=== PATIENT | male | born 1940 | race Caucasian/White ===

== ENCOUNTER 2024-10-02 12:04 | Observation (INO) | payer MEDICARE, OTHER ==
--- NOTE | 2024-10-02 12:43 | ERPHSYRPT ---
- History of Present Illness Time Seen by Provider: 10/02/24 12:20 Source: patient, family Exam Limitations: no limitations Patient Subjective Stated Complaint: PT states "I have been having swelling in my legs for the past couple of years and now they are weeping and they really hurt." Triage Nursing Assessment: PT presented alert and oriented X 3, skin pwd. Pt ambulates with assistance. PT lower extremities are extremely swollen and weeping, red and tender. Physician History: 83 years old male with history of lymphedema, noncompliant and has not seen a physician in almost 5 years presented in the ER with bilateral lower extremity swelling with some weeping blisters on the legs along with redness. Patient reports bilateral moderate intensity sharp shooting pain especially in the heels and is having hard time moving around. Denies any chest pain palpitations or shortness of breath. No workup done for lymphedema before. Allergies/Adverse Reactions: tape Adverse Reaction (Intermediate, Uncoded 10/02/24 12:20) Itching Hx Tetanus, Diphtheria Vaccination/Date Given: No Hx Influenza Vaccination/Date Given: No Hx Pneumococcal Vaccination/Date Given: No Immunizations Up to Date: No Travel Risk - International Travel Have you traveled outside of the country in past 3 weeks: No - Emerging Infectious Disease Are you exhibiting symptoms associated with any current EIDs: No - Review of Systems Constitutional: No Symptoms Ears, Nose, & Throat: No Symptoms Respiratory: No Symptoms Cardiac: Edema Abdominal/Gastrointestinal: No Symptoms Genitourinary Symptoms: No Symptoms Musculoskeletal: Arthralgias, Myalgias Skin: Cellulitis, Skin Lesions Neurological: No Symptoms Psychological: No Symptoms Hematologic/Lymphatic: No Symptoms - Past Medical History Pertinent Past Medical History: No - Past Surgical History Past Surgical History: Yes Other Surgical History: kidney stone. hernia - Social History Smoking Status: Never smoker Exposure to second hand smoke: Yes Drug Use: none - Social Determinants of Health Will the patient participate in the screening: Declined to provide - Nursing Vital Signs Nursing Vital Signs: Initial Vital Signs Temperature 97.8 F 10/02/24 12:14 Pulse Rate 68 10/02/24 12:14 Respiratory Rate 18 10/02/24 12:14 Blood Pressure 156/76 10/02/24 12:14 O2 Sat by Pulse Oximetry 100 10/02/24 12:14 Pain Scale Pain Intensity 4 - Physical Exam General Appearance: no apparent distress, alert Eye Exam: PERRL/EOMI Ears, Nose, Throat Exam: normal ENT inspection Neck Exam: normal inspection, non-tender, supple, full range of motion Respiratory Exam: normal breath sounds, lungs clear Cardiovascular Exam: regular rate/rhythm, normal heart sounds Gastrointestinal/Abdomen Exam: soft, normal bowel sounds, No tenderness Back Exam: normal inspection Extremity Exam: inflammation, joint swelling, limited range of motion, pedal edema, swelling, tenderness, other (Diffuse swelling of lower extremities especially in the calfs and feet with few blistering and erythema in the calf.) SpO2: 100 Ordered Tests: Medication Summary Discontinued Medications Generic Name Dose Route Start Last Admin Trade Name Freq PRN Reason Stop Dose Admin Acetaminophen 650 mg 10/02/24 18:16 Acetaminophen 325 Mg Tablet PO 11/01/24 18:15 Q4H PRN PRN PAIN, FEVER, HEADACHE Device 1 10/05/24 09:30 Therapuetic Drug Level Monitor Each IJ 10/05/24 09:31 1XONLY ONE Docusate Sodium 100 mg 10/02/24 18:16 Docusate Sodium 100 Mg Capsule PO 11/01/24 18:15 BIDPRN PRN CONSTIPATION Enoxaparin Sodium 40 mg 10/03/24 10:00 10/03/24 10:55 Enoxaparin Sodium 40 Mg/0.4 Ml Syringe SQ 11/02/24 09:59 Not Given DAILY SHOSHANA Furosemide 20 mg 10/03/24 10:00 10/03/24 10:55 Furosemide 20 Mg/Vial IV 11/02/24 09:59 Not Given BID DIURETIC SHOSHANA Clindamycin HCl/Dextrose 600 mg in 50 mls @ 100 mls/hr 10/02/24 15:52 10/03/24 07:42 Clindamycin-D5w 600 Mg/50 Ml IV 10/02/24 16:21 Not Given STAT STA Piperacillin Sod/Tazobactam 100 mls @ 200 mls/hr 10/02/24 15:52 10/02/24 16:54 Sod 3.375 gm/ Sodium Chloride IV 10/02/24 16:21 Infused STAT ONE Infusion Sodium Chloride Confirm 10/02/24 16:00 Sodium Chloride 100ml Mini-Bag Plus Administered 10/02/24 16:01 Dose 100 mls @ ud IV .STK-MED ONE Piperacillin Sod/Tazobactam 100 mls @ 200 mls/hr 10/03/24 00:00 10/03/24 13:07 Sod 3.375 gm/ Sodium Chloride IV 10/06/24 00:00 Not Given Q6HT COUNTS INCLUDE 234 BEDS AT THE [facility] Sodium Chloride Confirm 10/03/24 00:28 Sodium Chloride 100ml Mini-Bag Plus Administered 10/03/24 00:29 Dose 100 mls @ ud IV .STK-MED ONE Sodium Chloride Confirm 10/03/24 05:29 Sodium Chloride 100ml Mini-Bag Plus Administered 10/03/24 05:30 Dose 100 mls @ ud IV .STK-MED ONE Vancomycin HCl 1 gm in 200 mls @ 133.333 mls/hr 10/03/24 10:00 10/03/24 10:55 Vancomycin 1 Gram/200 Ml Bag IV 11/02/24 09:59 Not Given Q12HT COUNTS INCLUDE 234 BEDS AT THE [facility] Non-Formulary Medication 1 each 10/02/24 18:30 Pharmacy Dose Request: Vancomycin 1 Each IV 11/01/24 18:29 ONCALLTOOR COUNTS INCLUDE 234 BEDS AT THE [facility] Ondansetron HCl 4 mg 10/02/24 18:16 Ondansetron Hcl 4 Mg/2 Ml Vial IV 11/01/24 18:15 Q6H PRN PRN NAUSEA/VOMITING Piperacillin Sod/Tazobactam Sod Confirm 10/02/24 15:59 Piperacillin/Tazobactam Sodium 3.375 Gm Vial Administered 10/02/24 16:00 Dose 3.375 gm IV .STK-MED ONE Piperacillin Sod/Tazobactam Sod Confirm 10/03/24 00:27 Piperacillin/Tazobactam Sodium 3.375 Gm Vial Administered 10/03/24 00:28 Dose 3.375 gm IV .STK-MED ONE Piperacillin Sod/Tazobactam Sod Confirm 10/03/24 05:28 Piperacillin/Tazobactam Sodium 3.375 Gm Vial Administered 10/03/24 05:29 Dose 3.375 gm IV .STK-MED ONE Lab/Rad Data: Laboratory Result Diagrams 10/02/24 12:54 10/02/24 12:54 Laboratory Results 10/02/24 10/02/24 10/02/24 Range/Units 12:55 12:54 12:54 WBC (4.23-9.07) x10^3/uL RBC (4.63-6.08) x10^6/uL Hgb (13.7-17.5) g/dL Hct (40.1-51.0) % MCV (79.0-92.2) fL MCH (25.7-32.2) pg MCHC (32.3-36.5) g/dL RDW (11.6-14.4) % Plt Count (163-337) x10^3/uL MPV (9.4-12.4) fL Gran % (34.0-67.9) % Immature Gran % (Auto) (0.001-0.429) % Nucleat RBC Rel Count (0.00-0.2) % Eos # (Auto) (0.04-0.54) x10^3/uL Immature Gran # (Auto) (0.001-0.031) x10^3u/L Absolute Lymphs (auto) (1.32-3.57) x10^3/uL Absolute Monos (auto) (0.30-0.82) x10^3/uL Absolute Nucleated RBC (0.00-0.012) x10^3u/L Lymphocytes % (21.8-53.1) % Monocytes % (5.3-12.2) % Eosinophils % (0.8-7.0) % Basophils % (0.2-1.2) % Absolute Granulocytes (1.78-5.38) x10^3/uL Basophils # (0.01-0.08) x10^3/uL Sodium (135-145) mmol/L Potassium (3.5-5.1) mmol/L Chloride (98-107) mmol/L Carbon Dioxide (22-30) mmol/L Anion Gap (5-15) MEQ/L BUN (9-20) mg/dL Creatinine (0.66-1.25) mg/dL Estimated GFR ML/MIN Glucose (74-106) mg/dL Lactic Acid 0.8 (0.4-2.0) Calcium (8.4-10.2) mg/dL Magnesium (1.6-2.3) mg/dL Iron 49 (49-181) ug/dL TIBC 267 (261-497) ug/dL Iron Saturation 19 L (20-39) % Ferritin 141 (17.9-464) ng/mL Total Bilirubin (0.2-1.3) mg/dL AST (17-59) U/L ALT (0-50) U/L Alkaline Phosphatase (38-126) U/L NT-Pro-B Natriuret Pep (<300) pg/mL Serum Total Protein (6.3-8.2) g/dL Albumin (3.5-5.0) g/dL Vitamin B12 261 (239-931) pg/mL Folic Acid 3.74 (2.76 - >20) ng/mL Procalcitonin (0.030-0.080) ng/mL TSH 3rd Generation 1.405 (0.470-4.680) mIU/L 10/02/24 10/02/24 Range/Units 12:54 12:54 WBC 7.0 (4.23-9.07) x10^3/uL RBC 4.00 L (4.63-6.08) x10^6/uL Hgb 12.2 L (13.7-17.5) g/dL Hct 38.0 L (40.1-51.0) % MCV 95.0 H (79.0-92.2) fL MCH 30.5 (25.7-32.2) pg MCHC 32.1 L (32.3-36.5) g/dL RDW 13.3 (11.6-14.4) % Plt Count 217 (163-337) x10^3/uL MPV 9.7 (9.4-12.4) fL Gran % 76.5 H (34.0-67.9) % Immature Gran % (Auto) 0.4 (0.001-0.429) % Nucleat RBC Rel Count 0.0 (0.00-0.2) % Eos # (Auto) 0.13 (0.04-0.54) x10^3/uL Immature Gran # (Auto) 0.03 (0.001-0.031) x10^3u/L Absolute Lymphs (auto) 0.71 L (1.32-3.57) x10^3/uL Absolute Monos (auto) 0.73 (0.30-0.82) x10^3/uL Absolute Nucleated RBC 0.00 (0.00-0.012) x10^3u/L Lymphocytes % 10.1 L (21.8-53.1) % Monocytes % 10.4 (5.3-12.2) % Eosinophils % 1.9 (0.8-7.0) % Basophils % 0.7 (0.2-1.2) % Absolute Granulocytes 5.35 (1.78-5.38) x10^3/uL Basophils # 0.05 (0.01-0.08) x10^3/uL Sodium 138 (135-145) mmol/L Potassium 4.3 (3.5-5.1) mmol/L Chloride 103 (98-107) mmol/L Carbon Dioxide 25 (22-30) mmol/L Anion Gap 15.0 (5-15) MEQ/L BUN 25 H (9-20) mg/dL Creatinine 1.24 (0.66-1.25) mg/dL Estimated GFR 57.7 ML/MIN Glucose 99 (74-106) mg/dL Lactic Acid (0.4-2.0) Calcium 9.1 (8.4-10.2) mg/dL Magnesium 2.3 (1.6-2.3) mg/dL Iron (49-181) ug/dL TIBC (261-497) ug/dL Iron Saturation (20-39) % Ferritin (17.9-464) ng/mL Total Bilirubin 1.30 (0.2-1.3) mg/dL AST 24 (17-59) U/L ALT 12 (0-50) U/L Alkaline Phosphatase 83 (38-126) U/L NT-Pro-B Natriuret Pep 553 (<300) pg/mL Serum Total Protein 6.3 (6.3-8.2) g/dL Albumin 4.0 (3.5-5.0) g/dL Vitamin B12 (239-931) pg/mL Folic Acid (2.76 - >20) ng/mL Procalcitonin 0.061 (0.030-0.080) ng/mL TSH 3rd Generation (0.470-4.680) mIU/L - Progress Progress: pain not gone completely, re-examined Progress Note: 10/02/24 15:53 83-year-old with bilateral lower extremity lymphedema is evaluated in the ER for increasing pain and redness with weeping blisters on both legs. Patient has diffuse swelling of both lower extremities. Has increased temperature in the lower legs bilaterally. Workup showed normal white count, chemistries fairly unremarkable and normal lactate. Chest x-ray is negative for any acute cardiopulmonary findings interpreted by me followed by official read. Patient has chronic swelling of lower extremities which is lately getting worse and I believe he is developing cellulitis. Patient is noncompliant and I believe would benefit with few doses of IV antibiotics before switching to oral. He is started on Zosyn and clindamycin He is offered pain medication but declined Discussed with Dr. Judd, reviewed history, workup and agreed with observation admission. Discussed the results of workup with patient and family and plan of admission which they understand and agree. Complexity of problems addressed: Moderate acute Complexity of data reviewed/analyzed: Moderate Risk of complication: Moderate to high Counseled pt/family regarding: lab results, diagnosis, need for follow-up, rad results Medical Desision Making - Independent Historian Additional History obtained from: Spouse - Discussion of managment Care discussed with:: hospitalist Reviewed:: Test results Agreed on:: Treatment plan Will see patient: in hospital - Diagnostic Testing Diagnostic test were ordered, analyzed, and reviewed by me: Yes Radiological Interpretation: Interpreted by me, Reviewed by me - Risk of complications The pt has a mod risk of morbidity or mortality based on: Need for prescription drug management The pt has a high risk of morbidity or mortality based on: Decision regarding hospitilization or escalation of hosp level of care - Departure Departure Disposition: Observation Clinical Impression: Bilateral cellulitis of lower leg Condition: Stable Critical Care Time: No
[2024-10-02 13:15] LABS: Absolute Neutrophil Ct (ANC) 5.35 x10^3/uL (1.78-5.38); BASOPHIL % 0.7 % (0.2-1.2); Basophil (Absolute #) 0.05 x10^3/uL (0.01-0.08); Eosinophil % 1.9 % (0.8-7.0); Eosinophil (Absolute #) 0.13 x10^3/uL (0.04-0.54); Hemoglobin 12.2 g/dL (13.7-17.5); IMMATURE GRAN # 0.03 x10^3u/L (0.001-0.031); IMMATURE GRAN % 0.4 % (0.001-0.429); Lymphocyte (Absolute #) 0.71 x10^3/uL (1.32-3.57); Lymphocytes % 10.1 % (21.8-53.1); Mean Corpuscular Hemoglobin 30.5 pg (25.7-32.2); Mean Corpuscular Hgb Concent. 32.1 g/dL (32.3-36.5); Mean Platelet Volume 9.7 fL (9.4-12.4); Monocyte (Absolute #) 0.73 x10^3/uL (0.30-0.82); Monocytes % 10.4 % (5.3-12.2); Neutrophil % 76.5 % (34.0-67.9); Platelet Count 217 x10^3/uL (163-337); Red Cell Distribution Width 13.3 % (11.6-14.4)
--- NOTE | 2024-10-02 13:33 | XRAY ---
Indication: CHF. Comparison: None Portable chest rotated, hyperinflated, and clear. Heart not enlarged for AP portable technique. Small left hilar calcified nodes. Bony thorax intact with osteopenia and mild degenerative changes. Impression: Nonacute hyperinflated chest with chronic features.
[2024-10-02 13:45] LABS: BILIRUBIN,TOTAL 1.3 mg/dL (0.2-1.3); Calcium 9.1 mg/dL (8.4-10.2); Creatinine 1 1.24 mg/dL (0.66-1.25); EST GLOMERULAR FILTRATION RATE 57.7 ML/MIN; MAGNESIUM 2.3 mg/dL (1.6-2.3); PROCALCITONIN 0.061 ng/mL (0.030-0.080); Potassium 4.3 mmol/L (3.5-5.1); Total Protein 6.3 g/dL (6.3-8.2)
[2024-10-02] MEDS ORDERED: PIPERACILLIN/TAZOBACTAM IV ONE (15:59)
[2024-10-02] MEDS ORDERED: Sodium Chloride 100ML MINI-BAG PLUS 100 ML IV ONE (16:00)
[2024-10-02] MEDS: PIPERACILLIN/TAZOBACTAM 3.375 GM in Sodium Chloride 100ML MINI-BAG PLUS 100 ML IV ONE (16:12)
--- NOTE | 2024-10-02 18:06 | PCM.HP ---
<JESENIA REYES - Last Filed: 10/02/24 18:01> History of Present Illness - Chief Complaint Chief Complaint: Bilateral lower extremities cellulitis Date: 10/02/24 History of Present Illness: is a 83 year old male with chronic bilateral lower extremity lymphedema, who presented to ED 10/02/24 with worsening swelling, redness, and new-onset weeping blisters on both legs. He has not seen a physician in nearly five years and is reportedly noncompliant with routine medical care. The patient describes moderate-intensity sharp, shooting pain, primarily localized to the heels, which is interfering with mobility. Patient states he is unable to even wear shoes. He denies chest pain, palpitations, shortness of breath, or systemic symptoms such as fever or chills. On examination, there is diffuse, non-pitting swelling of both lower extremities with overlying erythema, and serous drainage. Bilateral lower legs are notably tender. Laboratory studies reveal a normal white blood cell count, macrocytic anemia with hemoglobin of 12.2, and unremarkable chemistry panel including a normal lactate level. Chest X-ray shows no acute cardiopulmonary process. There is no prior documented workup or treatment history for his lymphedema. Given the clinical presentation and exam findings, he is admitt with bilateral lower extremity cellulitis, likely superimposed on chronic lymphedema. He was initiated on empiric broad-spectrum IV antibiotics in the EDpiperacillin- tazobactam (Zosyn) and clindamycin. He declined analgesia but will be reassessed for pain control needs. Will continue Zosyn and Vancomycin pending culture results. Podiatry consulted. Compression therapy and long-term lymphedema management will be addressed. - Review of Systems Constitutional: No Symptoms Eyes: No Symptoms Ears, Nose, & Throat: No Symptoms Respiratory: No Symptoms Cardiac: No Symptoms Abdominal/Gastrointestinal: No Symptoms Genitourinary Symptoms: No Symptoms Musculoskeletal: No Symptoms Skin: Cellulitis (BLE 4++ pitting ), Skin Lesions (drainage) Neurological: No Symptoms Psychological: No Symptoms Endocrine: No Symptoms Hematologic/Lymphatic: No Symptoms Immunological/Allergic: No Symptoms Medications & Allergies Home Medications: Home Medication List No Reportable Medications [No Reported Medications] 10/02/24 [History Confirmed 10/02/24] Allergies/Adverse Reactions: Allergies Allergy/AdvReac Type Severity Reaction Status Date / Time tape AdvReac Intermediate Itching Uncoded 10/02/24 12:20 - Past Medical History Past Medical History: No - Past Surgical History Past Surgical History: Yes Other Surgical History: kidney stone. hernia Significant Family History: diabetes - Social History Smoking Status: Never smoker Exposure to second hand smoke: Yes Alcohol: None Drug Use: none - Social Determinants of Health Will the patient participate in the screening: Declined to provide - Physical Exam Vital Signs: Vital Signs - 24 hr Temp Pulse Resp BP BP Pulse Ox 10/02/24 16:30 152/69 10/02/24 16:15 144/65 10/02/24 16:00 68 18 150/68 99 10/02/24 15:57 100 10/02/24 15:45 131/79 10/02/24 15:30 141/70 10/02/24 15:15 136/71 10/02/24 15:00 152/65 10/02/24 14:45 152/101 10/02/24 14:30 144/66 10/02/24 14:16 136/64 10/02/24 14:01 153/72 10/02/24 13:45 151/69 10/02/24 13:30 163/76 10/02/24 13:15 161/85 10/02/24 13:00 78 18 164/88 99 10/02/24 12:45 154/85 100 10/02/24 12:30 154/109 98 10/02/24 12:15 147/63 100 10/02/24 12:14 97.8 F 68 18 156/76 100 General Appearance: no apparent distress Neurologic Exam: alert, oriented x 3, agitation, uncooperative Eye Exam: PERRL/EOMI Neck Exam: normal inspection Respiratory Exam: normal breath sounds, lungs clear Cardiovascular Exam: regular rate/rhythm, normal heart sounds Extremity Exam: pedal edema, swelling, tenderness Skin Exam: other (BLE erytema, open areas with serous drainage) Results - Labs Lab/Micro Results: Lab Results-Last 24 Hours 10/02/24 10/02/24 10/02/24 Range/Units 12:54 12:54 12:55 WBC 7.0 (4.23-9.07) x10^3/uL RBC 4.00 L (4.63-6.08) x10^6/uL Hgb 12.2 L (13.7-17.5) g/dL Hct 38.0 L (40.1-51.0) % MCV 95.0 H (79.0-92.2) fL MCH 30.5 (25.7-32.2) pg MCHC 32.1 L (32.3-36.5) g/dL RDW 13.3 (11.6-14.4) % Plt Count 217 (163-337) x10^3/uL MPV 9.7 (9.4-12.4) fL Gran % 76.5 H (34.0-67.9) % Immature Gran % (Auto) 0.4 (0.001-0.429) % Nucleat RBC Rel Count 0.0 (0.00-0.2) % Eos # (Auto) 0.13 (0.04-0.54) x10^3/uL Immature Gran # (Auto) 0.03 (0.001-0.031) x10^3u/L Absolute Lymphs (auto) 0.71 L (1.32-3.57) x10^3/uL Absolute Monos (auto) 0.73 (0.30-0.82) x10^3/uL Absolute Nucleated RBC 0.00 (0.00-0.012) x10^3u/L Lymphocytes % 10.1 L (21.8-53.1) % Monocytes % 10.4 (5.3-12.2) % Eosinophils % 1.9 (0.8-7.0) % Basophils % 0.7 (0.2-1.2) % Absolute Granulocytes 5.35 (1.78-5.38) x10^3/uL Basophils # 0.05 (0.01-0.08) x10^3/uL Sodium 138 (135-145) mmol/L Potassium 4.3 (3.5-5.1) mmol/L Chloride 103 (98-107) mmol/L Carbon Dioxide 25 (22-30) mmol/L Anion Gap 15.0 (5-15) MEQ/L BUN 25 H (9-20) mg/dL Creatinine 1.24 (0.66-1.25) mg/dL Estimated GFR 57.7 ML/MIN Glucose 99 (74-106) mg/dL Lactic Acid 0.8 (0.4-2.0) Calcium 9.1 (8.4-10.2) mg/dL Magnesium 2.3 (1.6-2.3) mg/dL Total Bilirubin 1.30 (0.2-1.3) mg/dL AST 24 (17-59) U/L ALT 12 (0-50) U/L Alkaline Phosphatase 83 (38-126) U/L NT-Pro-B Natriuret Pep 553 (<300) pg/mL Serum Total Protein 6.3 (6.3-8.2) g/dL Albumin 4.0 (3.5-5.0) g/dL Procalcitonin 0.061 (0.030-0.080) ng/mL - Radiology Impressions Radiology Exams & Impressions: Radiology Procedures Category Date Time Status CHEST 1 VIEW (PORTABLE) Stat Exams 10/02/24 12:35 Completed Assessment/Plan (1) Bilateral cellulitis of lower leg Current Visit: Yes Status: Acute Assessment & Plan: -BLE with diffuse erythema, warmth, pain, and weeping blisters -Zosyn and clindamycin in the ED -will continue with vanc/zosyn -follow wound cultures -Monitor for signs of systemic infection -Elevate legs- kaila borders -Podiatry consulted - appreciate recs -venous/arterial dopplers -CRP/ESR/procal Code(s): L03.116 - CELLULITIS OF LEFT LOWER LIMB; L03.115 - CELLULITIS OF RIGHT LOWER LIMB (2) Chronic acquired lymphedema Current Visit: Yes Status: Acute Assessment & Plan: -see cellulitis Code(s): I89.0 - LYMPHEDEMA, NOT ELSEWHERE CLASSIFIED (3) History of noncompliance with medical treatment Current Visit: Yes Status: Acute Assessment & Plan: -noted -Discussed importance of follow-up, adherence to treatment plans, and regular primary care engagement -Social work consult for discharge planning and assistance with outpatient access if appropriate Code(s): Z91.199 - PT NONCOMPL WITH OTHER MED TRTMT AND REGIMEN D/T UNSP REASON (4) Pain management Current Visit: Yes Status: Acute Assessment & Plan: -Patient declines pain control - will add prn norco Code(s): R52 - PAIN, UNSPECIFIED (5) Macrocytic anemia Current Visit: Yes Status: Acute Assessment & Plan: -Mild and likely chronic; etiology unclear -Consider outpatient workup if persistent: check vitamin B12, folate, TSH, reticulocyte count, and peripheral smear. -No acute intervention required at this time VTE: lovenox PPI: protonix Dispo: 1-3 days Code status: Full Code(s): D53.9 - NUTRITIONAL ANEMIA, UNSPECIFIED Telemedicine Encounter - Telemedicine Encounter Telemedicine Encounter: "The entirety of this encounter was performed via Telemedicine" This visit was performed using real-time audio and video connection between my location and thepatients locationwith the assistance of a surrogateat the patients location. Written or verbal consent was obtained from the patient/guardian to perform this visit using[employer]human[employer]cine technology. Any patient questions regarding the telemedicine interaction were answered. <CHUCKY LEE - Last Filed: 10/02/24 21:25> History of Present Illness - Chief Complaint History of Present Illness: is a 83 year old male. - Physical Exam Vital Signs: Vital Signs - 24 hr Temp Pulse Resp BP BP Pulse Ox 10/02/24 20:33 98.5 F 81 17 127/61 97 10/02/24 17:50 97.8 F 68 18 156/76 99 10/02/24 17:21 98.1 F 80 16 175/79 96 10/02/24 16:30 152/69 10/02/24 16:15 144/65 10/02/24 16:00 68 18 150/68 99 10/02/24 15:57 100 10/02/24 15:45 131/79 10/02/24 15:30 141/70 10/02/24 15:15 136/71 10/02/24 15:00 152/65 10/02/24 14:45 152/101 10/02/24 14:30 144/66 10/02/24 14:16 136/64 10/02/24 14:01 153/72 10/02/24 13:45 151/69 10/02/24 13:30 163/76 10/02/24 13:15 161/85 10/02/24 13:00 78 18 164/88 99 10/02/24 12:45 154/85 100 10/02/24 12:30 154/109 98 10/02/24 12:15 147/63 100 04/30/25 12:14 97.8 F 68 18 156/76 100 Results - Labs Lab/Micro Results: Lab Results-Last 24 Hours 10/02/24 10/02/24 10/02/24 Range/Units 12:54 12:54 12:54 WBC 7.0 (4.23-9.07) x10^3/uL RBC 4.00 L (4.63-6.08) x10^6/uL Hgb 12.2 L (13.7-17.5) g/dL Hct 38.0 L (40.1-51.0) % MCV 95.0 H (79.0-92.2) fL MCH 30.5 (25.7-32.2) pg MCHC 32.1 L (32.3-36.5) g/dL RDW 13.3 (11.6-14.4) % Plt Count 217 (163-337) x10^3/uL MPV 9.7 (9.4-12.4) fL Gran % 76.5 H (34.0-67.9) % Immature Gran % (Auto) 0.4 (0.001-0.429) % Nucleat RBC Rel Count 0.0 (0.00-0.2) % Eos # (Auto) 0.13 (0.04-0.54) x10^3/uL Immature Gran # (Auto) 0.03 (0.001-0.031) x10^3u/L Absolute Lymphs (auto) 0.71 L (1.32-3.57) x10^3/uL Absolute Monos (auto) 0.73 (0.30-0.82) x10^3/uL Absolute Nucleated RBC 0.00 (0.00-0.012) x10^3u/L Lymphocytes % 10.1 L (21.8-53.1) % Monocytes % 10.4 (5.3-12.2) % Eosinophils % 1.9 (0.8-7.0) % Basophils % 0.7 (0.2-1.2) % Absolute Granulocytes 5.35 (1.78-5.38) x10^3/uL Basophils # 0.05 (0.01-0.08) x10^3/uL Sodium 138 (135-145) mmol/L Potassium 4.3 (3.5-5.1) mmol/L Chloride 103 (98-107) mmol/L Carbon Dioxide 25 (22-30) mmol/L Anion Gap 15.0 (5-15) MEQ/L BUN 25 H (9-20) mg/dL Creatinine 1.24 (0.66-1.25) mg/dL Estimated GFR 57.7 ML/MIN Glucose 99 (74-106) mg/dL Lactic Acid (0.4-2.0) Calcium 9.1 (8.4-10.2) mg/dL Magnesium 2.3 (1.6-2.3) mg/dL Iron (49-181) ug/dL TIBC (261-497) ug/dL Iron Saturation (20-39) % Ferritin 141 (17.9-464) ng/mL Total Bilirubin 1.30 (0.2-1.3) mg/dL AST 24 (17-59) U/L ALT 12 (0-50) U/L Alkaline Phosphatase 83 (38-126) U/L NT-Pro-B Natriuret Pep 553 (<300) pg/mL Serum Total Protein 6.3 (6.3-8.2) g/dL Albumin 4.0 (3.5-5.0) g/dL Vitamin B12 261 (239-931) pg/mL Folic Acid 3.74 (2.76 - >20) ng/mL Procalcitonin 0.061 (0.030-0.080) ng/mL TSH 3rd Generation 1.405 (0.470-4.680) mIU/L 10/02/24 10/02/24 Range/Units 12:54 12:55 WBC (4.23-9.07) x10^3/uL RBC (4.63-6.08) x10^6/uL Hgb (13.7-17.5) g/dL Hct (40.1-51.0) % MCV (79.0-92.2) fL MCH (25.7-32.2) pg MCHC (32.3-36.5) g/dL RDW (11.6-14.4) % Plt Count (163-337) x10^3/uL MPV (9.4-12.4) fL Gran % (34.0-67.9) % Immature Gran % (Auto) (0.001-0.429) % Nucleat RBC Rel Count (0.00-0.2) % Eos # (Auto) (0.04-0.54) x10^3/uL Immature Gran # (Auto) (0.001-0.031) x10^3u/L Absolute Lymphs (auto) (1.32-3.57) x10^3/uL Absolute Monos (auto) (0.30-0.82) x10^3/uL Absolute Nucleated RBC (0.00-0.012) x10^3u/L Lymphocytes % (21.8-53.1) % Monocytes % (5.3-12.2) % Eosinophils % (0.8-7.0) % Basophils % (0.2-1.2) % Absolute Granulocytes (1.78-5.38) x10^3/uL Basophils # (0.01-0.08) x10^3/uL Sodium (135-145) mmol/L Potassium (3.5-5.1) mmol/L Chloride (98-107) mmol/L Carbon Dioxide (22-30) mmol/L Anion Gap (5-15) MEQ/L BUN (9-20) mg/dL Creatinine (0.66-1.25) mg/dL Estimated GFR ML/MIN Glucose (74-106) mg/dL Lactic Acid 0.8 (0.4-2.0) Calcium (8.4-10.2) mg/dL Magnesium (1.6-2.3) mg/dL Iron 49 (49-181) ug/dL TIBC 267 (261-497) ug/dL Iron Saturation 19 L (20-39) % Ferritin (17.9-464) ng/mL Total Bilirubin (0.2-1.3) mg/dL AST (17-59) U/L ALT (0-50) U/L Alkaline Phosphatase (38-126) U/L NT-Pro-B Natriuret Pep (<300) pg/mL Serum Total Protein (6.3-8.2) g/dL Albumin (3.5-5.0) g/dL Vitamin B12 (239-931) pg/mL Folic Acid (2.76 - >20) ng/mL Procalcitonin (0.030-0.080) ng/mL TSH 3rd Generation (0.470-4.680) mIU/L - Radiology Impressions Radiology Exams & Impressions: Radiology Procedures Category Date Time Status ARTERIAL BILAT LOWER EXTREMITY [US] Urgent Exams 10/02/24 18:22 Ordered CHEST 1 VIEW (PORTABLE) Stat Exams 10/02/24 12:35 Completed VENOUS BILATERAL EXTREMITY [US] Urgent Exams 10/02/24 18:20 Ordered Telemedicine Encounter - Telemedicine Encounter Telemedicine Encounter: "The entirety of this encounter was performed via Telemedicine" This visit was performed using real-time audio and video connection between my location and thepatients locationwith the assistance of a surrogateat the patients location. Written or verbal consent was obtained from the patient/guardian to perform this visit using[employer] technology. Any patient questions regarding the telemedicine interaction were answered. DELILAH Encounter - DELILAH Encounter Attestation DELILAH Encounter Attestation: "IhavepersonallyseenandexSUNIL Carroll andhavediscussed pertinent aspects of their care with Jesenia He agree with the history, physical exam (any modifications based on my personal exam will be noted below), assessment, and plan as outlined in original note. Please see immediately below for my summary of findings and additional assessment and plan along with any meaningful corrections/explanations to the Subjective/Objective portions of the DELILAH note will be noted." My portion of the encounter took place via telemedicine. -bilateral lower extremity cellulitis with chronic severe lymphedema in a non compliant, treatment averse patient. He seems very reluctant to any kind of medical intervention. Will admit for IV antibiotics, podiatry consult. He will most likely need home health at discharge.
[2024-10-02] MEDS ORDERED: Docusate Sodium 100 MG PO PRN (18:16)
[2024-10-02] MEDS ORDERED: TYLENOL 325 MG PO PRN (18:16)
[2024-10-02] MEDS ORDERED: Zofran 4 MG/2 ML VIAL IV PRN (18:16)
[2024-10-02] MEDS ORDERED: PHARMACY DOSING REQUIRED: VANCOMYCIN IV SCH (18:30)
[2024-10-02 18:55] LABS: Iron 49 ug/dL (49-181); Iron Saturation 19 % (20-39); TIBC 267 ug/dL (261-497)
[2024-10-02 19:53] LABS: Folate (Folic Acid) 3.74 ng/mL (2.76 - >20); TSH, 3RD Generation 1.405 mIU/L (0.470-4.680)
[2024-10-03] MEDS ORDERED: PIPERACILLIN/TAZOBACTAM IV ONE ×2 (00:27→05:28)
[2024-10-03] MEDS ORDERED: Sodium Chloride 100ML MINI-BAG PLUS 100 ML IV ONE ×2 (00:28→05:29)
[2024-10-03] MEDS: PIPERACILLIN/TAZOBACTAM 3.375 GM in Sodium Chloride 100ML MINI-BAG PLUS 100 ML IV SCH (00:37)
--- NOTE | 2024-10-03 05:08 | PCM.NOTE ---
Date and Time: 10/03/24 0507 Subjective Assessment: is a 83 year old male with chronic bilateral lower extremity lymphedema, who presented to ED 10/02/24 with worsening swelling, redness, and new-onset weeping blisters on both legs. He has not seen a physician in nearly five years and is reportedly noncompliant with routine medical care. The patient describes moderate-intensity sharp, shooting pain, primarily localized to the heels, which is interfering with mobility. Patient states he is unable to even wear shoes. He denies chest pain, palpitations, shortness of breath, or systemic symptoms such as fever or chills. On examination, there is diffuse, non-pitting swelling of both lower extremities with overlying erythema, and serous drainage. Bilateral lower legs are notably tender. Laboratory studies reveal a normal white blood cell count, macrocytic anemia with hemoglobin of 12.2, and unremarkable chemistry panel including a normal lactate level. Chest X-ray shows no acute cardiopulmonary process. There is no prior documented workup or treatment history for his lymphedema. Given the clinical presentation and exam findings, he is admitted with bilateral lower extremity cellulitis, likely superimposed on chronic lymphedema. He was initiated on empiric broad-spectrum IV antibiotics in the EDpiperacillin-tazobactam (Zosyn) and clindamycin. He declined analgesia but will be reassessed for pain control needs. Will continue Zosyn and Vancomycin pending culture results. Podiatry consulted. Compression therapy and long-term lymphedema management will be addressed. Objective Data Vital Signs: Vital Signs - 24 hr Temp Pulse Resp BP BP Pulse Ox 10/03/24 04:00 97.8 F 71 16 108/53 93 L 10/03/24 00:00 99.8 F 70 17 136/63 95 10/02/24 20:33 98.5 F 81 17 127/61 97 10/02/24 17:50 97.8 F 68 18 156/76 99 10/02/24 17:21 98.1 F 80 16 175/79 96 10/02/24 16:30 152/69 10/02/24 16:15 144/65 10/02/24 16:00 68 18 150/68 99 10/02/24 15:57 100 10/02/24 15:45 131/79 10/02/24 15:30 141/70 10/02/24 15:15 136/71 10/02/24 15:00 152/65 10/02/24 14:45 152/101 10/02/24 14:30 144/66 10/02/24 14:16 136/64 10/02/24 14:01 153/72 10/02/24 13:45 151/69 10/02/24 13:30 163/76 10/02/24 13:15 161/85 10/02/24 13:00 78 18 164/88 99 10/02/24 12:45 154/85 100 10/02/24 12:30 154/109 98 10/02/24 12:15 147/63 100 10/02/24 12:14 97.8 F 68 18 156/76 100 Pain Assessment - Last Documented Pain Intensity 0 Intake and Output: Intake & Output 09/30/24 10/01/24 10/02/24 10/03/24 11:59 11:59 11:59 11:59 Intake Total 720 Output Total 300 Balance 420 Weight 111.7 kg Lab Results: Lab Results-Last 24 Hours 10/02/24 10/02/24 10/02/24 Range/Units 12:54 12:54 12:54 WBC 7.0 (4.23-9.07) x10^3/uL RBC 4.00 L (4.63-6.08) x10^6/uL Hgb 12.2 L (13.7-17.5) g/dL Hct 38.0 L (40.1-51.0) % MCV 95.0 H (79.0-92.2) fL MCH 30.5 (25.7-32.2) pg MCHC 32.1 L (32.3-36.5) g/dL RDW 13.3 (11.6-14.4) % Plt Count 217 (163-337) x10^3/uL MPV 9.7 (9.4-12.4) fL Gran % 76.5 H (34.0-67.9) % Immature Gran % (Auto) 0.4 (0.001-0.429) % Nucleat RBC Rel Count 0.0 (0.00-0.2) % Eos # (Auto) 0.13 (0.04-0.54) x10^3/uL Immature Gran # (Auto) 0.03 (0.001-0.031) x10^3u/L Absolute Lymphs (auto) 0.71 L (1.32-3.57) x10^3/uL Absolute Monos (auto) 0.73 (0.30-0.82) x10^3/uL Absolute Nucleated RBC 0.00 (0.00-0.012) x10^3u/L Lymphocytes % 10.1 L (21.8-53.1) % Monocytes % 10.4 (5.3-12.2) % Eosinophils % 1.9 (0.8-7.0) % Basophils % 0.7 (0.2-1.2) % Absolute Granulocytes 5.35 (1.78-5.38) x10^3/uL Basophils # 0.05 (0.01-0.08) x10^3/uL Sodium 138 (135-145) mmol/L Potassium 4.3 (3.5-5.1) mmol/L Chloride 103 (98-107) mmol/L Carbon Dioxide 25 (22-30) mmol/L Anion Gap 15.0 (5-15) MEQ/L BUN 25 H (9-20) mg/dL Creatinine 1.24 (0.66-1.25) mg/dL Estimated GFR 57.7 ML/MIN Glucose 99 (74-106) mg/dL Lactic Acid (0.4-2.0) Calcium 9.1 (8.4-10.2) mg/dL Magnesium 2.3 (1.6-2.3) mg/dL Iron (49-181) ug/dL TIBC (261-497) ug/dL Iron Saturation (20-39) % Ferritin 141 (17.9-464) ng/mL Total Bilirubin 1.30 (0.2-1.3) mg/dL AST 24 (17-59) U/L ALT 12 (0-50) U/L Alkaline Phosphatase 83 (38-126) U/L NT-Pro-B Natriuret Pep 553 (<300) pg/mL Serum Total Protein 6.3 (6.3-8.2) g/dL Albumin 4.0 (3.5-5.0) g/dL Vitamin B12 261 (239-931) pg/mL Folic Acid 3.74 (2.76 - >20) ng/mL Procalcitonin 0.061 (0.030-0.080) ng/mL TSH 3rd Generation 1.405 (0.470-4.680) mIU/L 10/02/24 10/02/24 Range/Units 12:54 12:55 WBC (4.23-9.07) x10^3/uL RBC (4.63-6.08) x10^6/uL Hgb (13.7-17.5) g/dL Hct (40.1-51.0) % MCV (79.0-92.2) fL MCH (25.7-32.2) pg MCHC (32.3-36.5) g/dL RDW (11.6-14.4) % Plt Count (163-337) x10^3/uL MPV (9.4-12.4) fL Gran % (34.0-67.9) % Immature Gran % (Auto) (0.001-0.429) % Nucleat RBC Rel Count (0.00-0.2) % Eos # (Auto) (0.04-0.54) x10^3/uL Immature Gran # (Auto) (0.001-0.031) x10^3u/L Absolute Lymphs (auto) (1.32-3.57) x10^3/uL Absolute Monos (auto) (0.30-0.82) x10^3/uL Absolute Nucleated RBC (0.00-0.012) x10^3u/L Lymphocytes % (21.8-53.1) % Monocytes % (5.3-12.2) % Eosinophils % (0.8-7.0) % Basophils % (0.2-1.2) % Absolute Granulocytes (1.78-5.38) x10^3/uL Basophils # (0.01-0.08) x10^3/uL Sodium (135-145) mmol/L Potassium (3.5-5.1) mmol/L Chloride (98-107) mmol/L Carbon Dioxide (22-30) mmol/L Anion Gap (5-15) MEQ/L BUN (9-20) mg/dL Creatinine (0.66-1.25) mg/dL Estimated GFR ML/MIN Glucose (74-106) mg/dL Lactic Acid 0.8 (0.4-2.0) Calcium (8.4-10.2) mg/dL Magnesium (1.6-2.3) mg/dL Iron 49 (49-181) ug/dL TIBC 267 (261-497) ug/dL Iron Saturation 19 L (20-39) % Ferritin (17.9-464) ng/mL Total Bilirubin (0.2-1.3) mg/dL AST (17-59) U/L ALT (0-50) U/L Alkaline Phosphatase (38-126) U/L NT-Pro-B Natriuret Pep (<300) pg/mL Serum Total Protein (6.3-8.2) g/dL Albumin (3.5-5.0) g/dL Vitamin B12 (239-931) pg/mL Folic Acid (2.76 - >20) ng/mL Procalcitonin (0.030-0.080) ng/mL TSH 3rd Generation (0.470-4.680) mIU/L Radiology Exams: Radiology Procedures Category Date Time Status ARTERIAL BILAT LOWER EXTREMITY [US] Urgent Exams 10/03/24 18:22 Ordered CHEST 1 VIEW (PORTABLE) Stat Exams 10/02/24 12:35 Completed VENOUS BILATERAL EXTREMITY [US] Urgent Exams 10/03/24 18:20 Ordered Medications: Medications Generic Name Dose Route Start Last Admin Trade Name Freq PRN Reason Stop Dose Admin Acetaminophen 650 mg 10/02/24 18:16 Acetaminophen 325 Mg Tablet PO 11/01/24 18:15 Q4H PRN PRN PAIN, FEVER, HEADACHE Docusate Sodium 100 mg 10/02/24 18:16 Docusate Sodium 100 Mg Capsule PO 11/01/24 18:15 BIDPRN PRN CONSTIPATION Enoxaparin Sodium 40 mg 10/03/24 10:00 Enoxaparin Sodium 40 Mg/0.4 Ml Syringe SQ 11/02/24 09:59 DAILY SHOSHANA Furosemide 20 mg 10/03/24 10:00 Furosemide 20 Mg/Vial IV 11/02/24 09:59 BID DIURETIC SHOSHANA Piperacillin Sod/Tazobactam 100 mls @ 200 mls/hr 10/03/24 00:00 10/03/24 00:37 Sod 3.375 gm/ Sodium Chloride IV 10/06/24 00:00 200 mls/hr Q6HT [facility] Administration Non-Formulary Medication 1 each 10/02/24 18:30 Pharmacy Dose Request: Vancomycin 1 Each IV 11/01/24 18:29 ONCALLTOOR [facility] Ondansetron HCl 4 mg 10/02/24 18:16 Ondansetron Hcl 4 Mg/2 Ml Vial IV 11/01/24 18:15 Q6H PRN PRN NAUSEA/VOMITING Discontinued Medications Generic Name Dose Route Start Last Admin Trade Name Freq PRN Reason Stop Dose Admin Clindamycin HCl/Dextrose 600 mg in 50 mls @ 100 mls/hr 10/02/24 15:52 Clindamycin-D5w 600 Mg/50 Ml IV 10/02/24 16:21 STAT STA Piperacillin Sod/Tazobactam 100 mls @ 200 mls/hr 10/02/24 15:52 10/02/24 16:54 Sod 3.375 gm/ Sodium Chloride IV 10/02/24 16:21 Infused STAT ONE Infusion Sodium Chloride Confirm 10/02/24 16:00 Sodium Chloride 100ml Mini-Bag Plus Administered 10/02/24 16:01 Dose 100 mls @ ud IV .STK-MED ONE Sodium Chloride Confirm 10/03/24 00:28 Sodium Chloride 100ml Mini-Bag Plus Administered 10/03/24 00:29 Dose 100 mls @ ud IV .STK-MED ONE Piperacillin Sod/Tazobactam Sod Confirm 10/02/24 15:59 Piperacillin/Tazobactam Sodium 3.375 Gm Vial Administered 10/02/24 16:00 Dose 3.375 gm IV .STK-MED ONE Piperacillin Sod/Tazobactam Sod Confirm 10/03/24 00:27 Piperacillin/Tazobactam Sodium 3.375 Gm Vial Administered 10/03/24 00:28 Dose 3.375 gm IV .STK-MED ONE Assessment/Plan (1) Bilateral cellulitis of lower leg Current Visit: Yes Status: Acute Assessment & Plan: -BLE with diffuse erythema, warmth, pain, and weeping blisters -Zosyn and clindamycin in the ED -will continue with vanc/zosyn -follow wound cultures -Monitor for signs of systemic infection -Elevate legs- kaila borders -Podiatry consulted - appreciate recs -venous/arterial dopplers -CRP/ESR/procal Code(s): L03.116 - CELLULITIS OF LEFT LOWER LIMB; L03.115 - CELLULITIS OF RIGHT LOWER LIMB (2) Chronic acquired lymphedema Current Visit: Yes Status: Acute Assessment & Plan: -see cellulitis Code(s): I89.0 - LYMPHEDEMA, NOT ELSEWHERE CLASSIFIED (3) History of noncompliance with medical treatment Current Visit: Yes Status: Acute Assessment & Plan: -noted -Discussed importance of follow-up, adherence to treatment plans, and regular primary care engagement -Social work consult for discharge planning and assistance with outpatient access if appropriate Code(s): Z91.199 - PT NONCOMPL WITH OTHER MED TRTMT AND REGIMEN D/T UNSP REASON (4) Pain management Current Visit: Yes Status: Acute Assessment & Plan: -Patient declines pain control - will add prn norco Code(s): R52 - PAIN, UNSPECIFIED (5) Macrocytic anemia Current Visit: Yes Status: Acute Assessment & Plan: -Mild and likely chronic; etiology unclear -Consider outpatient workup if persistent: check vitamin B12, folate, TSH, reticulocyte count, and peripheral smear. -No acute intervention required at this time Code(s): L03.116 - CELLULITIS OF LEFT LOWER LIMB; L03.115 - CELLULITIS OF RIGHT LOWER LIMB (2) Chronic acquired lymphedema Current Visit: Yes Status: Acute Code(s): I89.0 - LYMPHEDEMA, NOT ELSEWHERE CLASSIFIED (3) History of noncompliance with medical treatment Current Visit: Yes Status: Acute Code(s): Z91.199 - PT NONCOMPL WITH OTHER MED TRTMT AND REGIMEN D/T UNSP REASON (4) Pain management Current Visit: Yes Status: Acute Code(s): R52 - PAIN, UNSPECIFIED (5) Macrocytic anemia Current Visit: Yes Status: Acute Code(s): D53.9 - NUTRITIONAL ANEMIA, UNSPECIFIED
[2024-10-03 05:14] LABS: Absolute Neutrophil Ct (ANC) 3.66 x10^3/uL (1.78-5.38); BASOPHIL % 0.9 % (0.2-1.2); Basophil (Absolute #) 0.05 x10^3/uL (0.01-0.08); Eosinophil % 3.6 % (0.8-7.0); Hematocrit 32.3 % (40.1-51.0); Hemoglobin 10.4 g/dL (13.7-17.5); IMMATURE GRAN # 0.02 x10^3u/L (0.001-0.031); IMMATURE GRAN % 0.4 % (0.001-0.429); Lymphocyte (Absolute #) 0.79 x10^3/uL (1.32-3.57); Lymphocytes % 14.4 % (21.8-53.1); Mean Cell Volume 94.7 fL (79.0-92.2); Mean Corpuscular Hemoglobin 30.5 pg (25.7-32.2); Mean Corpuscular Hgb Concent. 32.2 g/dL (32.3-36.5); Mean Platelet Volume 10.1 fL (9.4-12.4); Monocyte (Absolute #) 0.78 x10^3/uL (0.30-0.82); Monocytes % 14.2 % (5.3-12.2); Neutrophil % 66.5 % (34.0-67.9); Platelet Count 177 x10^3/uL (163-337); Red Blood Count 3.41 x10^6/uL (4.63-6.08); Red Cell Distribution Width 13.3 % (11.6-14.4); White Blood Count 5.5 x10^3/uL (4.23-9.07)
[2024-10-03 05:33] LABS: ALBUMIN 2.9 g/dL (3.5-5.0); ANION GAP 11.8 MEQ/L (5-15); BILIRUBIN,TOTAL 1.2 mg/dL (0.2-1.3); Calcium 8.5 mg/dL (8.4-10.2); Creatinine 1 1.2 mg/dL (0.66-1.25); Potassium 3.9 mmol/L (3.5-5.1); Total Protein 4.9 g/dL (6.3-8.2)
[2024-10-03 07:20] VITALS: BP 122/58; PULSE 62; RESP 22; TEMP 99.4
[2024-10-03] MEDS: CLINDAMYCIN-D5W 600 MG/50 ML*** 600 MG/50 ML BAG IV STA (07:42)
--- NOTE | 2024-10-03 10:28 | PCM.DS ---
Discharge Summary Date of Admission: 10/02/24 17:06 Date of Discharge: 10/03/24 Admitting Physician: CHUCKY LEE MD Consults: Consults on Case 10/02/24 17:39 Consult Podiatry ROUTINE Primary Care Provider: NO FAMILY DOCTOR Allergies Allergies tape Adverse Reaction (Intermediate, Uncoded 10/02/24 12:20) Itching Hospital Summary - Hospital Course Hospital Course: Mr. Singh is an 83-year-old male with a history of chronic bilateral lower extremity lymphedema who was admitted on 10/02/24 with worsening bilateral leg swelling, erythema, and new-onset weeping blisters. He reported moderate- intensity, sharp pain localized primarily to his heels, significantly impairing ambulation. He had not engaged in routine medical care for over five years and is known to be noncompliant with treatment. On physical examination, he was afebrile with diffuse non-pitting edema, overlying erythema, tenderness, and serous drainage involving both lower extremities. Initial labs showed a normal white blood cell count, macrocytic anemia with hemoglobin of 12.2, and a normal metabolic panel including lactate. Chest X-ray showed no acute cardiopulmonary findings. He was diagnosed with bilateral lower extremity cellulitis, likely superimposed on chronic lymphedema. Broad-spectrum IV antibiotics were initiated with piperacillin-tazobactam and clindamycin, later transitioned to vancomycin and Zosyn for broader coverage. Despite initial reluctance, he eventually agreed to oral antibiotic therapy and was discharged in clinically stable condition on cephalexin (Keflex) for continued treatment. Podiatry was consulted for wound evaluation and lymphedema guidance, but the patient declined in-hospital lymphedema intervention and antibiotic treatment. Social work was involved to support outpatient follow-up planning. He will require continued outpatient wound care, compression therapy, and primary care reestablishment. A macrocytic anemia was noted, suspected to be chronic and mild; outpatient evaluation for vitamin B12/folate deficiency is recommended. Discharge Note New Medications: Keflex Follow Up: Podiatry/ PCP Results pending: wound culture I spent 35 minutes [id number] with the patient on the day of discharge performing discharge exam, discussing hospital stay and discharge instructions with patient and caregivers, preparation of discharge records, prescriptions & referral forms and addressing any questions/concerns the patient had as documented above. - Vitals & Intake/Output Vital Signs: Vital Signs Temperature 99.4 F 10/03/24 07:20 Pulse Rate 62 10/03/24 07:20 Respiratory Rate 22 10/03/24 07:20 Blood Pressure 122/58 10/03/24 07:20 O2 Sat by Pulse Oximetry 94 L 10/03/24 07:20 Intake & Output: Intake & Output 09/30/24 10/01/24 10/02/24 10/03/24 11:59 11:59 11:59 11:59 Intake Total 960 Output Total 500 Balance 460 Weight 106.4 kg - Lab Result Diagrams: 10/03/24 05:07 10/03/24 05:07 Lab Results-Last 24 Hrs: Lab Results-Last 24 Hours 10/02/24 10/02/24 10/02/24 Range/Units 12:54 12:54 12:54 WBC 7.0 (4.23-9.07) x10^3/uL RBC 4.00 L (4.63-6.08) x10^6/uL Hgb 12.2 L (13.7-17.5) g/dL Hct 38.0 L (40.1-51.0) % MCV 95.0 H (79.0-92.2) fL MCH 30.5 (25.7-32.2) pg MCHC 32.1 L (32.3-36.5) g/dL RDW 13.3 (11.6-14.4) % Plt Count 217 (163-337) x10^3/uL MPV 9.7 (9.4-12.4) fL Gran % 76.5 H (34.0-67.9) % Immature Gran % (Auto) 0.4 (0.001-0.429) % Nucleat RBC Rel Count 0.0 (0.00-0.2) % Eos # (Auto) 0.13 (0.04-0.54) x10^3/uL Immature Gran # (Auto) 0.03 (0.001-0.031) x10^3u/L Absolute Lymphs (auto) 0.71 L (1.32-3.57) x10^3/uL Absolute Monos (auto) 0.73 (0.30-0.82) x10^3/uL Absolute Nucleated RBC 0.00 (0.00-0.012) x10^3u/L Lymphocytes % 10.1 L (21.8-53.1) % Monocytes % 10.4 (5.3-12.2) % Eosinophils % 1.9 (0.8-7.0) % Basophils % 0.7 (0.2-1.2) % Absolute Granulocytes 5.35 (1.78-5.38) x10^3/uL Basophils # 0.05 (0.01-0.08) x10^3/uL Sodium 138 (135-145) mmol/L Potassium 4.3 (3.5-5.1) mmol/L Chloride 103 (98-107) mmol/L Carbon Dioxide 25 (22-30) mmol/L Anion Gap 15.0 (5-15) MEQ/L BUN 25 H (9-20) mg/dL Creatinine 1.24 (0.66-1.25) mg/dL Estimated GFR 57.7 ML/MIN Glucose 99 (74-106) mg/dL Lactic Acid (0.4-2.0) Calcium 9.1 (8.4-10.2) mg/dL Magnesium 2.3 (1.6-2.3) mg/dL Iron (49-181) ug/dL TIBC (261-497) ug/dL Iron Saturation (20-39) % Ferritin 141 (17.9-464) ng/mL Total Bilirubin 1.30 (0.2-1.3) mg/dL AST 24 (17-59) U/L ALT 12 (0-50) U/L Alkaline Phosphatase 83 (38-126) U/L NT-Pro-B Natriuret Pep 553 (<300) pg/mL Serum Total Protein 6.3 (6.3-8.2) g/dL Albumin 4.0 (3.5-5.0) g/dL Vitamin B12 261 (239-931) pg/mL Folic Acid 3.74 (2.76 - >20) ng/mL Procalcitonin 0.061 (0.030-0.080) ng/mL TSH 3rd Generation 1.405 (0.470-4.680) mIU/L 10/02/24 10/02/24 10/03/24 Range/Units 12:54 12:55 05:07 WBC 5.5 (4.23-9.07) x10^3/uL RBC 3.41 L (4.63-6.08) x10^6/uL Hgb 10.4 L (13.7-17.5) g/dL Hct 32.3 L (40.1-51.0) % MCV 94.7 H (79.0-92.2) fL MCH 30.5 (25.7-32.2) pg MCHC 32.2 L (32.3-36.5) g/dL RDW 13.3 (11.6-14.4) % Plt Count 177 (163-337) x10^3/uL MPV 10.1 (9.4-12.4) fL Gran % 66.5 (34.0-67.9) % Immature Gran % (Auto) 0.4 (0.001-0.429) % Nucleat RBC Rel Count 0.0 (0.00-0.2) % Eos # (Auto) 0.20 (0.04-0.54) x10^3/uL Immature Gran # (Auto) 0.02 (0.001-0.031) x10^3u/L Absolute Lymphs (auto) 0.79 L (1.32-3.57) x10^3/uL Absolute Monos (auto) 0.78 (0.30-0.82) x10^3/uL Absolute Nucleated RBC 0.00 (0.00-0.012) x10^3u/L Lymphocytes % 14.4 L (21.8-53.1) % Monocytes % 14.2 H (5.3-12.2) % Eosinophils % 3.6 (0.8-7.0) % Basophils % 0.9 (0.2-1.2) % Absolute Granulocytes 3.66 (1.78-5.38) x10^3/uL Basophils # 0.05 (0.01-0.08) x10^3/uL Sodium (135-145) mmol/L Potassium (3.5-5.1) mmol/L Chloride (98-107) mmol/L Carbon Dioxide (22-30) mmol/L Anion Gap (5-15) MEQ/L BUN (9-20) mg/dL Creatinine (0.66-1.25) mg/dL Estimated GFR ML/MIN Glucose (74-106) mg/dL Lactic Acid 0.8 (0.4-2.0) Calcium (8.4-10.2) mg/dL Magnesium (1.6-2.3) mg/dL Iron 49 (49-181) ug/dL TIBC 267 (261-497) ug/dL Iron Saturation 19 L (20-39) % Ferritin (17.9-464) ng/mL Total Bilirubin (0.2-1.3) mg/dL AST (17-59) U/L ALT (0-50) U/L Alkaline Phosphatase (38-126) U/L NT-Pro-B Natriuret Pep (<300) pg/mL Serum Total Protein (6.3-8.2) g/dL Albumin (3.5-5.0) g/dL Vitamin B12 (239-931) pg/mL Folic Acid (2.76 - >20) ng/mL Procalcitonin (0.030-0.080) ng/mL TSH 3rd Generation (0.470-4.680) mIU/L 10/03/24 Range/Units 05:07 WBC (4.23-9.07) x10^3/uL RBC (4.63-6.08) x10^6/uL Hgb (13.7-17.5) g/dL Hct (40.1-51.0) % MCV (79.0-92.2) fL MCH (25.7-32.2) pg MCHC (32.3-36.5) g/dL RDW (11.6-14.4) % Plt Count (163-337) x10^3/uL MPV (9.4-12.4) fL Gran % (34.0-67.9) % Immature Gran % (Auto) (0.001-0.429) % Nucleat RBC Rel Count (0.00-0.2) % Eos # (Auto) (0.04-0.54) x10^3/uL Immature Gran # (Auto) (0.001-0.031) x10^3u/L Absolute Lymphs (auto) (1.32-3.57) x10^3/uL Absolute Monos (auto) (0.30-0.82) x10^3/uL Absolute Nucleated RBC (0.00-0.012) x10^3u/L Lymphocytes % (21.8-53.1) % Monocytes % (5.3-12.2) % Eosinophils % (0.8-7.0) % Basophils % (0.2-1.2) % Absolute Granulocytes (1.78-5.38) x10^3/uL Basophils # (0.01-0.08) x10^3/uL Sodium 138 (135-145) mmol/L Potassium 3.9 (3.5-5.1) mmol/L Chloride 106 (98-107) mmol/L Carbon Dioxide 24 (22-30) mmol/L Anion Gap 11.8 (5-15) MEQ/L BUN 24 H (9-20) mg/dL Creatinine 1.20 (0.66-1.25) mg/dL Estimated GFR 60.0 ML/MIN Glucose 84 (74-106) mg/dL Lactic Acid (0.4-2.0) Calcium 8.5 (8.4-10.2) mg/dL Magnesium (1.6-2.3) mg/dL Iron (49-181) ug/dL TIBC (261-497) ug/dL Iron Saturation (20-39) % Ferritin (17.9-464) ng/mL Total Bilirubin 1.20 (0.2-1.3) mg/dL AST 20 (17-59) U/L ALT 10 (0-50) U/L Alkaline Phosphatase 66 (38-126) U/L NT-Pro-B Natriuret Pep (<300) pg/mL Serum Total Protein 4.9 L (6.3-8.2) g/dL Albumin 2.9 L (3.5-5.0) g/dL Vitamin B12 (239-931) pg/mL Folic Acid (2.76 - >20) ng/mL Procalcitonin (0.030-0.080) ng/mL TSH 3rd Generation (0.470-4.680) mIU/L - Radiology Exams Ordered Rad Exams-Entire Visit: Radiology Procedures Category Date Time Status CHEST 1 VIEW (PORTABLE) Stat Exams 10/02/24 12:35 Completed Discharge Exam General Appearance: no apparent distress Neurologic Exam: alert, oriented x 3, agitation, uncooperative Eye Exam: PERRL Ears, Nose, Throat Exam: normal ENT inspection Neck Exam: normal inspection Extremity Exam: inflammation, pedal edema, swelling, other (lymphedema BLE) Final Diagnosis/Problem List - Final Discharge Diagnosis/Problem (1) Bilateral cellulitis of lower leg Current Visit: Yes Status: Acute Code(s): L03.116 - CELLULITIS OF LEFT LOWER LIMB; L03.115 - CELLULITIS OF RIGHT LOWER LIMB (2) Chronic acquired lymphedema Current Visit: Yes Status: Acute Code(s): I89.0 - LYMPHEDEMA, NOT ELSEWHERE CLASSIFIED (3) History of noncompliance with medical treatment Current Visit: Yes Status: Acute Code(s): Z91.199 - PT NONCOMPL WITH OTHER MED TRTMT AND REGIMEN D/T UNSP REASON (4) Pain management Current Visit: Yes Status: Acute Code(s): R52 - PAIN, UNSPECIFIED (5) Macrocytic anemia Current Visit: Yes Status: Acute Code(s): D53.9 - NUTRITIONAL ANEMIA, UNSPECIFIED - Discharge Discharge Date: 10/03/24 Disposition: Home, Self-Care Condition: Stable Prescriptions: New Cephalexin Mh 500 mg [Keflex 500 mg] 500 mg PO Q6H 7 Days #28 cap Follow up with: DOCTOR,NO FAMILY [Primary Care Provider, UNKNOWN] IRWIN GORE DPM [ACTIVE STAFF, PODIATRY] - 1 Week
[2024-10-03] MEDS: Lasix 20 MG/2 ML IV SCH (10:55)
[2024-10-03] MEDS: VANCOMYCIN 1 GRAM/200 ML BAG 1 GM/200 ML PIGGYBACK IV SCH (10:55)
[2024-10-03] MEDS: ENOXAPARIN SODIUM SQ SCH (10:55)
--- NOTE | 2024-10-03 14:12 | PCM.CONS ---
Podiatry HPI - Consult Date of Consultation Date: 10/03/24 Reason for Consult: Bilateral lymphedema Consulting Provider: IRWIN GORE DPM - [facility] History of Present Illness: is a 83 year old male. Medications & Allergies Home Medications: Home Medication List Cephalexin Mh 500 mg [Keflex 500 mg] 500 mg PO Q6H 7 Days #28 cap 10/03/24 [Rx] Allergies/Adverse Reactions: Allergies Allergy/AdvReac Type Severity Reaction Status Date / Time tape AdvReac Intermediate Itching Uncoded 10/02/24 12:20 - Past Medical History Past Medical History: No - Past Surgical History Past Surgical History: Yes Other Surgical History: kidney stone. hernia Significant Family History: diabetes - Social History Smoking Status: Never smoker Exposure to second hand smoke: Yes Alcohol: None Drug Use: none - Social Determinants of Health Will the patient participate in the screening: Declined to provide Physical Exam - Narrative Narrative Physical Exam: Podiatry Physical Exam Results - Labs Lab/Micro Results: Lab Results-Last 24 Hours 10/02/24 10/02/24 10/03/24 Range/Units 12:54 12:54 05:07 WBC 5.5 (4.23-9.07) x10^3/uL RBC 3.41 L (4.63-6.08) x10^6/uL Hgb 10.4 L (13.7-17.5) g/dL Hct 32.3 L (40.1-51.0) % MCV 94.7 H (79.0-92.2) fL MCH 30.5 (25.7-32.2) pg MCHC 32.2 L (32.3-36.5) g/dL RDW 13.3 (11.6-14.4) % Plt Count 177 (163-337) x10^3/uL MPV 10.1 (9.4-12.4) fL Gran % 66.5 (34.0-67.9) % Immature Gran % (Auto) 0.4 (0.001-0.429) % Nucleat RBC Rel Count 0.0 (0.00-0.2) % Eos # (Auto) 0.20 (0.04-0.54) x10^3/uL Immature Gran # (Auto) 0.02 (0.001-0.031) x10^3u/L Absolute Lymphs (auto) 0.79 L (1.32-3.57) x10^3/uL Absolute Monos (auto) 0.78 (0.30-0.82) x10^3/uL Absolute Nucleated RBC 0.00 (0.00-0.012) x10^3u/L Lymphocytes % 14.4 L (21.8-53.1) % Monocytes % 14.2 H (5.3-12.2) % Eosinophils % 3.6 (0.8-7.0) % Basophils % 0.9 (0.2-1.2) % Absolute Granulocytes 3.66 (1.78-5.38) x10^3/uL Basophils # 0.05 (0.01-0.08) x10^3/uL Sodium (135-145) mmol/L Potassium (3.5-5.1) mmol/L Chloride (98-107) mmol/L Carbon Dioxide (22-30) mmol/L Anion Gap (5-15) MEQ/L BUN (9-20) mg/dL Creatinine (0.66-1.25) mg/dL Estimated GFR ML/MIN Glucose (74-106) mg/dL Calcium (8.4-10.2) mg/dL Iron 49 (49-181) ug/dL TIBC 267 (261-497) ug/dL Iron Saturation 19 L (20-39) % Ferritin 141 (17.9-464) ng/mL Total Bilirubin (0.2-1.3) mg/dL AST (17-59) U/L ALT (0-50) U/L Alkaline Phosphatase (38-126) U/L Serum Total Protein (6.3-8.2) g/dL Albumin (3.5-5.0) g/dL Vitamin B12 261 (239-931) pg/mL Folic Acid 3.74 (2.76 - >20) ng/mL TSH 3rd Generation 1.405 (0.470-4.680) mIU/L 10/03/24 Range/Units 05:07 WBC (4.23-9.07) x10^3/uL RBC (4.63-6.08) x10^6/uL Hgb (13.7-17.5) g/dL Hct (40.1-51.0) % MCV (79.0-92.2) fL MCH (25.7-32.2) pg MCHC (32.3-36.5) g/dL RDW (11.6-14.4) % Plt Count (163-337) x10^3/uL MPV (9.4-12.4) fL Gran % (34.0-67.9) % Immature Gran % (Auto) (0.001-0.429) % Nucleat RBC Rel Count (0.00-0.2) % Eos # (Auto) (0.04-0.54) x10^3/uL Immature Gran # (Auto) (0.001-0.031) x10^3u/L Absolute Lymphs (auto) (1.32-3.57) x10^3/uL Absolute Monos (auto) (0.30-0.82) x10^3/uL Absolute Nucleated RBC (0.00-0.012) x10^3u/L Lymphocytes % (21.8-53.1) % Monocytes % (5.3-12.2) % Eosinophils % (0.8-7.0) % Basophils % (0.2-1.2) % Absolute Granulocytes (1.78-5.38) x10^3/uL Basophils # (0.01-0.08) x10^3/uL Sodium 138 (135-145) mmol/L Potassium 3.9 (3.5-5.1) mmol/L Chloride 106 (98-107) mmol/L Carbon Dioxide 24 (22-30) mmol/L Anion Gap 11.8 (5-15) MEQ/L BUN 24 H (9-20) mg/dL Creatinine 1.20 (0.66-1.25) mg/dL Estimated GFR 60.0 ML/MIN Glucose 84 (74-106) mg/dL Calcium 8.5 (8.4-10.2) mg/dL Iron (49-181) ug/dL TIBC (261-497) ug/dL Iron Saturation (20-39) % Ferritin (17.9-464) ng/mL Total Bilirubin 1.20 (0.2-1.3) mg/dL AST 20 (17-59) U/L ALT 10 (0-50) U/L Alkaline Phosphatase 66 (38-126) U/L Serum Total Protein 4.9 L (6.3-8.2) g/dL Albumin 2.9 L (3.5-5.0) g/dL Vitamin B12 (239-931) pg/mL Folic Acid (2.76 - >20) ng/mL TSH 3rd Generation (0.470-4.680) mIU/L - Radiology Impressions Radiology Exams & Impressions: Radiology Procedures Category Date Time Status CHEST 1 VIEW (PORTABLE) Stat Exams 10/02/24 12:35 Completed Assessment/Plan (1) Bilateral cellulitis of lower leg Current Visit: Yes Status: Acute Assessment & Plan: Patient examination and evaluation Reviewed Ultrasound demonstrating negative findings of occlusion Patient recommended compression therapy and wound care Patient defers recommendation at this time however will consider options Thank you for the consult. Code(s): L03.116 - CELLULITIS OF LEFT LOWER LIMB; L03.115 - CELLULITIS OF RIGHT LOWER LIMB (2) Chronic acquired lymphedema Current Visit: Yes Status: Acute Code(s): I89.0 - LYMPHEDEMA, NOT ELSEWHERE CLASSIFIED (3) History of noncompliance with medical treatment Current Visit: Yes Status: Acute Code(s): Z91.199 - PT NONCOMPL WITH OTHER MED TRTMT AND REGIMEN D/T UNSP REASON
[2024-10-04 12:59] VITALS: O2SAT 100
[2024-10-05] MEDS ORDERED: TROUGH DRUG LEVELS IJ ONE (09:30)
== END 2024-10-03 13:59 | disposition home or self-care (01) ==
LOC: ED 12:04 → MED SURG 16:55
PROVIDERS: ADMIT Internal Medicine; ATTEND Internal Medicine
DX: L03.116 Cellulitis of left lower limb (principal); L03.115 Cellulitis of right lower limb; I89.0 Lymphedema, not elsewhere classified; Z91.199 Patient's noncompliance with other medical treatment and regimen due to unspecified reason; M79.605 Pain in left leg; M79.604 Pain in right leg; R60.0 Localized edema; D53.9 Nutritional anemia, unspecified; Z79.899 Other long term (current) drug therapy
CPT/HCPCS: 36415; 71045; 80053; 82607; 82728; 82746; 83540; 83550; 83605; 83735; 83880; 84145; 84443; 85025; 87040; 87070; 99223; 99285; G0378; Q3014; 99284